=== PATIENT | female | born 1985 | race Caucasian/White ===

== ENCOUNTER 2016-11-23 15:50 | Outpatient (CLI) ==
--- NOTE | 2016-11-23 16:34 | DI ---
EXAM: Cervical spine; AP, open-mouth, swimmer's lateral, and lateral views HISTORY: Neck pain FINDINGS: The vertebrae have normal height and alignment. The intervertebral joint spaces are mainta ined. C7 cervical ribs are noted. The prevertebral soft tissues are unremarkable. The facets maintain appropriate alignment. The den s is intact on the open mouth view. No acute fracture or lithesis are detected. OPINION: No acute fracture or lithesis. No significant spondylosis. Bilateral C7 ribs.
--- NOTE | 2016-11-23 16:38 | DI ---
EXAM: Three views of the thoracic spine HISTORY: Lower back pain. COMPARISON: None FINDINGS: There is no acute compression fracture or subluxation of the thoracic spine. There is no lytic or blastic lesion. The soft tissues are unremarkable. IMPRESSION: No acute abnormality of the thoracic spine.
--- NOTE | 2016-11-23 16:48 | DI ---
EXAM: Lumbar spine five views HISTORY: Low back pain FINDINGS: No comparison. Bone density appears grossly normal. No noticeable scoliosis. Sacroilia c joints are within normal limits. There is early facet arthropathy at the lumbosacral junction wit h mild degenerative disc disease L5/S1. Lowermost fully formed disc space taken as L5/S1. Normal v ertebral body height without spondylolisthesis. Oblique views reveal normal pars interarticularis s tructures. IMPRESSION: Early degenerative changes lumbosacral junction.
== END 2016-11-23 15:51 | disposition home or self-care (01) ==
LOC: RAD 15:50
PROVIDERS: ATTEND Nurse Practitioner Family
DX: M54.5 Low back pain (principal); M54.2 Cervicalgia; M54.6 Pain in thoracic spine

== ENCOUNTER 2016-11-24 12:26 | Outpatient (CLI) ==
[2016-11-24 13:21] LABS: BASOPHILS % (AUTO) 0.5 % (0.0-3.0); EOSINOPHILS # (AUTO) 0.1 K/ul (0.0-0.7); EOSINOPHILS % (AUTO) 1.8 % (0.0-7.0); HEMATOCRIT 36.3 % (37.0-47.0); HEMOGLOBIN 11.3 g/dl (12.0-16.0); IMMATURE GRANULOCYTE % (AUTO) 0.3 % (0.0-5.0); LYMPHOCYTES # (AUTO) 1.8 K/uL (0.60-3.4); LYMPHOCYTES % (AUTO) 30.3 (10.0-50.0); MEAN CORPUSCULAR HEMOGLOBIN 23.9 pg (27.0-31.0); MEAN CORPUSCULAR HGB CONC 31.1 (31.8-35.4); MEAN CORPUSCULAR VOLUME 76.9 fl (81.0-99.0); MONOCYTES # (AUTO) 0.3 K/uL (0.4-2.0); MONOCYTES % (AUTO) 5.5 (0-10); NEUTROPHILS # (AUTO) 3.7 K/ul (2.0-6.9); NEUTROPHILS % (AUTO) 61.6; PLATELET COUNT 337 10^3/uL (140-440); RED BLOOD COUNT 4.72 10^6/ul (4.20-5.40); WHITE BLOOD COUNT 5.98 K/ul (4.6-10.2)
[2016-11-24 14:03] LABS: ALBUMIN 3.6 g/dL (3.4-5.0); ALBUMIN/GLOBULIN RATIO 0.95; ANION GAP 13.9; BILIRUBIN,TOTAL 0.36 mg/dL (0.00-1.20); BUN/CREATININE RATIO 16.66; CALCIUM 9.1 mg/dL (8.2-10.2); CREATININE 0.72 mg/dL (0.60-1.30); POTASSIUM 3.9 mmol/L (3.5-5.10); TOTAL PROTEIN 7.4 g/dL (6.4-8.2)
== END 2016-11-24 12:27 | disposition home or self-care (01) ==
LOC: LAB 12:26
PROVIDERS: ATTEND Nurse Practitioner Family
DX: D64.9 Anemia, unspecified (principal); E66.9 Obesity, unspecified
CPT/HCPCS: 36415; 80053; 80061; 83036; 84439; 84443; 85025

== ENCOUNTER 2017-02-15 14:12 | Outpatient (CLI) ==
--- NOTE | 2017-02-15 14:35 | DI ---
EXAM: Chest two view, frontal and lateral views. HISTORY: Shortness of breath. COMPARISON: None available. FINDINGS: The heart size is normal. There is no pulmonary vascular congestion. The lungs are ashwin r. No pleural effusion or pneumothorax is seen. No acute osseous abnormality identified. IMPRESSION: No acute cardiopulmonary process.
== END 2017-02-15 14:13 | disposition home or self-care (01) ==
LOC: RAD 14:12
PROVIDERS: ATTEND Nurse Practitioner Family
DX: R06.02 Shortness of breath (principal); M89.8X9 Other specified disorders of bone, unspecified site; E65 Localized adiposity

== ENCOUNTER 2017-02-28 08:07 | Outpatient (CLI) ==
[2017-02-28 08:44] LABS: CREATININE 0.75 mg/dL (0.60-1.30)
--- NOTE | 2017-02-28 09:47 | CT ---
EXAM: CT chest with contrast. HISTORY: Chest pain. Palpable area adjacent to the sternum. COMPARISON: Chest radiograph 02/15/2017. TECHNIQUE: Multiple axial images of the chest were obtained following intravenous administration of 75 mL of Omnipaque 350, low osmolar. Images were reformatted in the sagittal and coronal planes. FINDINGS: No axillary, mediastinal, or hilar lymphadenopathy identified. Heart size is normal. Th ere is no pericardial effusion. The lungs are clear without pleural effusion or pneumothorax. Limited images of the upper abdomen demonstrate cholelithiasis and fatty infiltration of the liver. The osseous structures are without acute abnormality. It should be noted that the right side of the manubrium and more superior body of the sternum are positioned more anteriorly than the left side w ith the right to sternoclavicular joint and first and second costosternal junction also locate more anteriorly than the contralateral side. No discrete bony mass or adjacent soft tissue mass, edema o r fluid collection identified. IMPRESSION: 1. No acute abnormality of the chest. 2. Upper sternal angulation as described without discrete mass.
== END 2017-02-28 08:08 | disposition home or self-care (01) ==
LOC: RAD 08:07
PROVIDERS: ATTEND Nurse Practitioner Family
DX: M89.8X9 Other specified disorders of bone, unspecified site (principal); R06.02 Shortness of breath; E65 Localized adiposity
CPT/HCPCS: 36415; 82565

== ENCOUNTER 2017-04-16 14:16 | Outpatient (CLI) ==
[2017-04-16 14:28] LABS: BASOPHILS % (AUTO) 0.4 % (0.0-3.0); EOSINOPHILS # (AUTO) 0.1 K/ul (0.0-0.7); EOSINOPHILS % (AUTO) 1.6 % (0.0-7.0); HEMATOCRIT 36.1 % (37.0-47.0); HEMOGLOBIN 11.3 g/dl (12.0-16.0); IMMATURE GRANULOCYTE % (AUTO) 0.6 % (0.0-5.0); LYMPHOCYTES # (AUTO) 2.7 K/uL (0.60-3.4); LYMPHOCYTES % (AUTO) 34.8 (10.0-50.0); MEAN CORPUSCULAR HEMOGLOBIN 23.4 pg (27.0-31.0); MEAN CORPUSCULAR HGB CONC 31.3 (31.8-35.4); MEAN CORPUSCULAR VOLUME 74.9 fl (81.0-99.0); MONOCYTES # (AUTO) 0.5 K/uL (0.4-2.0); MONOCYTES % (AUTO) 6.6 (0-10); NEUTROPHILS # (AUTO) 4.3 K/ul (2.0-6.9); PLATELET COUNT 326 10^3/uL (140-440); RED BLOOD COUNT 4.82 10^6/ul (4.20-5.40)
[2017-04-16 14:31] LABS: BILIRUBIN,URINE Negative (NEGATIVE); KETONES,URINE Negative (NEGATIVE); LEUKOCYTE ESTERASE ,URINE Trace (NEGATIVE); NITRITE,URINE Negative (NEGATIVE); PROTEIN,URINE Negative (NEGATIVE); URINE, BLOOD Trace-lysed (NEGATIVE)
[2017-04-16 14:38] LABS: ADD URINE MICROSCOPIC YES
[2017-04-16 14:39] LABS: BACTERIA,URINE TRACE (NOT PRESENT)
[2017-04-16 14:50] LABS: ALBUMIN 3.8 g/dL (3.4-5.0); ALBUMIN/GLOBULIN RATIO 0.95; ANION GAP 13.6; BILIRUBIN,TOTAL 0.46 mg/dL (0.00-1.20); BUN/CREATININE RATIO 10.52; CALCIUM 9.1 mg/dL (8.2-10.2); CREATININE 0.76 mg/dL (0.60-1.30); POTASSIUM 3.6 mmol/L (3.5-5.10); TOTAL PROTEIN 7.8 g/dL (6.4-8.2)
[2017-04-16 17:36] LABS: FERRITIN 21.59 ng/mL (4.63-204.00)
== END 2017-04-16 14:17 | disposition home or self-care (01) ==
LOC: CAR 14:16
PROVIDERS: ATTEND Nurse Practitioner Family
DX: R00.2 Palpitations (principal); M54.9 Dorsalgia, unspecified; D64.9 Anemia, unspecified
CPT/HCPCS: 36415; 80053; 81001; 82728; 83540; 83550; 84466; 85025; 93005; 93010

== ENCOUNTER 2017-04-18 14:47 | Outpatient (CLI) ==
--- NOTE | 2017-04-19 03:56 | MRI ---
EXAM: MRI lumbar spine without IV contrast. DATE: 18 April 2017. HISTORY: Lumbar degenerative disc disease. TECHNIQUE: Sagittal and axial T1W and T2W sequences of the lumbar spine along with sagittal IR and coronal T2W sequences were obtained using 1.2 Sweetie magnet. No IV contrast. COMPARISON: LS spine series [address] chest 28 Feb 2017. FINDINGS: There are six lumbar-type vertebra. Previous chest see 18 demonstrates 11 thoracic verte bra with classic paired ribs followed by the first giv-hiz-vdrayjo vertebra. Previously this non-ri b-bearing vertebra was seen to be T12. In keeping with the previous numbering system, this vertebra will also be referred to as T12 in this dictation. At the lumbosacral junction, there is a transiti onal lumbar vertebra with pseudoarticulation of the left L5 transverse process with the left S1 sacr al ala. Minimal (3 degrees) leftward curvature of the lumbar spine is observed. No acute lumbar fracture, s ubluxation, osseous malignancy, or pars interarticularis defect is detected. The lumbar vertebrae n ormal in height. Bone marrow signal is normal. A small, chronic Schmorl's nodes are seen at T11, T 12, L1, L2, and L5. Disc desiccation and mild disc space narrowing are demonstrated at L5-S1. Shantel ining intervertebral discs are normal in height. No sacral fracture or stress reaction is detected. Mild right SI joint arthritis is evident. Conus medullaris terminates at L1. Visible spinal cord is normal. No retroperitoneal lymphadenopathy, paraspinal mass, or aortic aneurysm is identified. Paraspinal m usculature is symmetric bilaterally. Right lobe liver and spleen are borderline vs mildly prominent . No suspicious neoplasm is identified in the visible portions of the liver, spleen, adrenal glands or kidneys. A T2W bright, T1W dark, 2.1 cm focus in the right ovary is likely a dominant follicle. Visible portion uterus reveals the anterior wall 12 mm T2W slightly dark focus near the dome. Segmental analysis: T12-L1: Normal. L1-2: Normal. L2-3: Normal. L3-4: Normal. L4-5: Normal. L5-S1: Minor concentric disc bulge and a small amount of epidural fat cause mild narrowing of the t hecal sac and slight bilateral inferior foraminal encroachment. IMPRESSIONS: 1. L5-S1 mild central canal stenosis and moderate bilateral foraminal narrowing. No nerve compress ion. 2. T-L-spine small, chronic Schmorl's nodes. 3. Borderline vs mild hepatosplenomegaly. If symptoms warrant further evaluation, consider US or C T scan. 4. Dominant right ovarian follicle. 5. Possible uterine dome fibroid.
== END 2017-04-18 14:48 | disposition home or self-care (01) ==
LOC: RAD 14:47
PROVIDERS: ATTEND Nurse Practitioner Family
DX: M51.36 Other intervertebral disc degeneration, lumbar region (principal); M12.88 Other specific arthropathies, not elsewhere classified, other specified site; M54.9 Dorsalgia, unspecified

== ENCOUNTER 2017-06-14 14:02 | Outpatient (CLI) ==
[2017-06-14 14:28] LABS: BASOPHILS % (AUTO) 0.5 % (0.0-3.0); EOSINOPHILS # (AUTO) 0.2 K/ul (0.0-0.7); EOSINOPHILS % (AUTO) 1.8 % (0.0-7.0); HEMOGLOBIN 11.9 g/dl (12.0-16.0); IMMATURE GRANULOCYTE % (AUTO) 0.5 % (0.0-5.0); LYMPHOCYTES # (AUTO) 2.6 K/uL (0.60-3.4); LYMPHOCYTES % (AUTO) 31.5 (10.0-50.0); MEAN CORPUSCULAR HGB CONC 33.1 (31.8-35.4); MEAN CORPUSCULAR VOLUME 75.6 fl (81.0-99.0); MONOCYTES # (AUTO) 0.5 K/uL (0.4-2.0); NEUTROPHILS # (AUTO) 4.9 K/ul (2.0-6.9); NEUTROPHILS % (AUTO) 59.7; PLATELET COUNT 278 10^3/uL (140-440); RED BLOOD COUNT 4.76 10^6/ul (4.20-5.40)
== END 2017-06-14 14:03 | disposition home or self-care (01) ==
LOC: CAR 14:02
PROVIDERS: ATTEND Nurse Practitioner Family
DX: E66.9 Obesity, unspecified (principal)
CPT/HCPCS: 36415; 84439; 84443; 85025; 93005; 93010

== ENCOUNTER 2017-06-21 06:24 | Outpatient (CLI) ==
--- NOTE | 2017-06-21 09:36 | ECHOSTRESS ---
Date of Exam: 06/21/17 Ordering Physician: ANTONIETTA IRIZARRY Reason for Echo: ABNORMAL EKG, HYPERTENSION, POSSIBLE MURMUR, STRESS TEST--NO ISCHEMIA M-Mode Normal Adult Results LV Dimensions Normal Adult Results AoV Opening excursions >1.6 LVEDD-base- 3.5-5.8 Ao root dimensions 2.0-3.7 LVESD-base- 3.1-4.6 L. Atrium dimensions 1.9-3.8 Post. Wall thickness 0.8-1.1 IV septum (thickness) 0.7-1.2 Post. Wall excursion 0.72-1.3 Septal motion Systolic motion R. Ventricular cavity 1.5-2.0 LVEF 60% Paradoxical septal wall motion 2-D: NORMAL LEFT VENTRICULAR CONTRACTILITY--RESTING AND POST EXERCISE M-MODE: MV: AV: TV: PV: CHAMBER SIZE: WALL MOTION: NORMAL LEFT VENTRICULAR CONTRACTILITY--RESTING AND POST EXERCISE PERICARDIUM: INTERPRETATION: 1. NORMAL LEFT VENTRICULAR CONTRACTILITY--RESTING AND POST EXERCISE MTDD
--- NOTE | 2017-06-21 09:51 | STRESSECHO ---
Date of Test: 06/21/17 Reason for Exam: ABNORMAL EKG, HYPERTENSION, POSSIBLE MURMUR Ordering Physician: ANTONIETTA STEWART Current Medications: ZOLOFT, ATARAX, LISINOPRIL, IRON Resting EKG: SINUS RHYTHM/ PREMATURE VENTRICULAR CONTRACTION Target Heart Rate: 158/187 STAGE MPH/GRADE HEART RATE BPM BLOOD PRESSURE mmhg RHYTHM S-T SEGMENT +/- UP DOWN SYMPTOMS,COMMENTS At Rest 80 124/82 SR X NONE 1 1.7/10% 140 136/170 SR X NONE 2 2.5/12% 3 3.4/14% 4 4.2/16% 5 5.0/18% Immediately after 162 SR X FATIGUE Durations of Exercise: 5:00 Maximum Heart Rate Reached: 162 Reason for Termination: FATIGUE 2 MINUTES POST EXERCISE: HR 120 MMHG, BP 144/68 MMHG INTERPRETATION: 95% OXYGEN SATURATION WITH EXERCISE ON ROOM AIR METS 7.0 1. NO EVIDENCE OF ISCHEMIA BY ST-T WAVE 2. NO CHEST PAIN OR CHEST DISCOMFORT 3. BLOOD PRESSURE RESPONSE: NORMAL 4. NO ARRHYTHMIAS NORMAL LEFT VENTRICULAR CONTRACTILITY--RESTING AND POST EXERCISE MTDD
== END 2017-06-21 06:25 | disposition home or self-care (01) ==
LOC: CAR 06:24
PROVIDERS: ATTEND Nurse Practitioner Family
DX: R94.31 Abnormal electrocardiogram [ECG] [EKG] (principal)

== ENCOUNTER 2017-06-27 16:47 | Emergency (ER) ==
[2017-06-27 16:56] VITALS: BP 133/88; TEMP 97.9; BMI 45.6
[2017-06-27] MEDS ORDERED: ATIVAN PO STA (17:04)
--- NOTE | 2017-06-27 17:04 | ED.PDOC ---
General ED Provider: Dr. BRIGHT BLISS JR Chief Complaint: Non-specific Complaint Stated Complaint: tingling/numbness to face --states started earlier today when at work--onset to lips first then spread to face and then entire body--had similar sx with start of phenteramine--started med again 1 week ago. [ End ] onset tingling to face/arms today --becoming worse--occured before when on phentaramine--now anxious with sx. [ End ]97.9 98 20 97% 133/88 Time Seen by Physician: 17:04 Mode of Arrival: Walk-In Information Source: Patient Exam Limitations: No limitations Primary Care Provider: ANTONIETTA LARA Nursing and Triage Documentation Reviewed and Agree: No Review of Systems - Review Of Systems Constitutional: Reports: Malaise Eyes: Reports: No symptoms Ears, Nose, Mouth, Throat: Denies: Mouth pain Respiratory: Reports: No symptoms Cardiac: Reports: No symptoms GI: Reports: Diarrhea : Reports: No symptoms Musculoskeletal: Reports: No symptoms Skin: Reports: No symptoms Neurological: Reports: Anxiety, Tingling Endocrine: Reports: No symptoms Hematologic/Lymphatic: Reports: No symptoms All Other Systems: Other Past Medical History - Past Medical History Endocrine: Reports: None Cardiovascular: Reports: Hypertension Respiratory: Reports: None Hematological: Reports: Anemia Gastrointestinal: Reports: None Genitourinary: Reports: None Neuro/Psych: Reports: Anxiety Musculoskeletal: Reports: None Cancer: Reports: None Last Menstrual Period: now - Surgical History General Surgical History: Reports: Tonsillectomy, Other (nose) - Family History Family History: Reports: Unknown - Social History Smoking Status: Never smoker Hx Substance Use: No Alcohol Screening: Occasionally Physical Exam - Physical Exam Appearance: Well-appearing, Obese Pain Distress: Mild Eyes: MARS, EOMI, Conjunctiva clear ENT: Ears normal, Nose normal, Oropharynx normal Neck: Supple Respiratory: Airway patent, Breath sounds clear, Breath sounds equal, Respirations nonlabored Cardiovascular: RRR, Pulses normal, No rub, No murmur GI/: Soft, Nontender, No masses, Bowel sounds normal, No Organomegaly Musculoskeletal: Normal strength, ROM intact, No edema, No calf tenderness Skin: Warm, Dry, Normal color Neurological: Sensation intact, Motor intact, Reflexes intact, Cranial nerves intact, Alert, Oriented Psychiatric: Affect appropriate, Mood appropriate, Anxious Critical Care Note - Critical Care Note Total Time (mins): 0 Course - Course Orders, Labs, Meds: Orders Category Date Time Status Lorazepam [Ativan] MEDS 06/27/17 17:04 Discontinued 0.5 mg PO ONCE STA Medications Discontinued Medications Generic Name Dose Route Start Last Admin Trade Name Freq PRN Reason Stop Dose Admin Lorazepam 0.5 mg 06/27/17 17:04 06/27/17 17:12 Ativan PO 06/27/17 17:05 0.5 mg ONCE STA Administration Vital Signs: Temp Pulse Resp BP Pulse Ox 06/27/17 16:48 97.9 F 98 H 20 133/88 97 Departure - Departure Time of Disposition: 17:22 Disposition: HOME SELF-CARE Discharge Problem: Idiosyncratic reaction to medication after proper dose Instructions: Hyperventilation (ED), Adverse Drug Reaction (ED) Condition: Good Pt referred to PMD for follow-up: Yes Additional Instructions: may use Ativan for symptoms -brief use only can cause dependence stop phenteramine increase daily aerobic exercise return if worsening follow up PMD one week Prescriptions: Lorazepam [Ativan] 0.25 mg PO TID PRN #7 tablet PRN Reason: Anxiety Allergies/Adverse Reactions: Allergies No Known Allergies Allergy (Verified 06/27/17 16:56) Home Medications: Ambulatory Orders Lorazepam [Ativan] 0.25 mg PO TID PRN #7 tablet 06/27/17
== END 2017-06-27 17:55 | disposition home or self-care (01) ==
LOC: ED 16:47
DX: R20.2 Paresthesia of skin (principal); T50.5X5A Adverse effect of appetite depressants, initial encounter
CPT/HCPCS: 99282

== ENCOUNTER 2017-07-19 14:04 | Outpatient (CLI) ==
[2017-07-19 15:17] LABS: ALBUMIN 3.5 g/dL (3.4-5.0); ALBUMIN/GLOBULIN RATIO 0.81; BILIRUBIN,TOTAL 0.33 mg/dL (0.00-1.20); BUN/CREATININE RATIO 13.04; CALCIUM 9.6 mg/dL (8.2-10.2); CHOL/HDL RATIO 2.5 (4.5-5.5); CREATININE 0.69 mg/dL (0.60-1.30); TOTAL PROTEIN 7.8 g/dL (6.4-8.2)
== END 2017-07-19 14:05 | disposition home or self-care (01) ==
LOC: LAB 14:04
PROVIDERS: ATTEND Nurse Practitioner Family
DX: E66.9 Obesity, unspecified (principal)
CPT/HCPCS: 36415; 80053; 80061; 84439; 84443

== ENCOUNTER 2017-07-26 08:06 | Outpatient (CLI) ==
--- NOTE | 2017-07-26 09:35 | US ---
EXAM: ULTRASOUND ABDOMEN LIMITED HISTORY: Abnormal liver enzymes FINDINGS: Ultrasound abdomen, limited. Keen-scale ultrasound, color Doppler and spectral analysis w as performed. Liver size was prominent at about 18-19 cm. Liver parenchyma demonstrated diffuse inc reased sound attenuation which can be consistent with steatosis. No focal hepatic lesion or evidence of intrahepatic biliary dilatation was identified. The main portal vein is patent and hepatopedal. There is at least one small gallstone. Gallbladder wall thickness remained within normal limits at 0 .25 cm. The common bile duct diameter was normal at 0.43 cm. Visualized pancreas was within normal limits. No ascites was identified. IMPRESSION: 1. Cholelithiasis with no gallbladder wall thickening or common bile duct dilatation. No ascites. 2. Prominent sized fatty liver.
== END 2017-07-26 08:07 | disposition home or self-care (01) ==
LOC: RAD 08:06
PROVIDERS: ATTEND Nurse Practitioner Family
DX: R74.8 Abnormal levels of other serum enzymes (principal)

== ENCOUNTER 2017-08-06 08:48 | Outpatient (CLI) ==
[2017-08-06 10:33] VITALS: BMI 45.4
== END 2017-08-06 08:49 | disposition home or self-care (01) ==
LOC: DIETCN 08:48
PROVIDERS: ATTEND Nurse Practitioner Family
DX: E66.9 Obesity, unspecified (principal)
CPT/HCPCS: 97802

== ENCOUNTER 2017-11-20 12:46 | Outpatient (CLI) ==
--- NOTE | 2017-11-22 08:52 | HOLTER ---
PATIENT INFORMATION AND COMMENTS Attending Physician: MALATHI GLORIA Indications: HEART PALPITATIONS, TACHYCARDIA __ Patient Medications: LISINOPRIL, ZOLOFT, METOPROLOL __ Pre-procedure Summary: Protocol: Standard Heart Rate Started: 11/20/17 1305 Minimum: 65 BPM Weight: 277 LBS Ended: 11/21/17 1305 Maximum: 145 BPM Height: 62" Duration: 24 HOURS Average: 99 BPM _ INTERPRETATIONS/OBSERVATIONS: 1. BASIC RHYTHM: SINUS TACHYCARDIA, RATE 65 BPM TO 140 BPM, AVERAGE 100 BPM 2. RARE PAC'S, NO PVC'S 3. NO ST-T WAVE CHANGES FROM BASELINE 4. NO CORRELATION WITH ACTIVITY LOG MTDD
== END 2017-11-20 12:47 | disposition home or self-care (01) ==
LOC: CAR 12:46
PROVIDERS: ATTEND Nurse Practitioner Family
DX: R00.0 Tachycardia, unspecified (principal); R00.2 Palpitations
CPT/HCPCS: 93227